=== PATIENT | male | born 1980 | race African-American/Black ===

== ENCOUNTER 2024-01-14 14:04 | Outpatient (CLI) | payer BC | END 2024-01-14 14:05 | disposition home or self-care (01) | LOC: CSHCP 14:04 | PROVIDERS: ATTEND Internal Medicine Critical Care Medicine | DX: R06.00 Dyspnea, unspecified (principal); J93.9 Pneumothorax, unspecified; J98.4 Other disorders of lung | CPT/HCPCS: 71046; 94060; 94726; 94729; 94760 ==